=== PATIENT | male | born 1990 | race African-American/Black ===

== ENCOUNTER → 2020-10-21 09:45 | Outpatient (CLI) | payer OTHER, SELFPAY ==
[2020-10-21 11:34] LABS: COVID19 -Nasal RAPID Negative (Negative)
== END ==
PROVIDERS: Visit Provider Physician Assistant
DX: Z11.59 Encounter for screening for other viral diseases (principal)
CPT/HCPCS: 87635

== ENCOUNTER 2020-10-23 08:56 | Day surgery (SDC) | payer OTHER, SELFPAY ==
[2020-10-23] VITALS (12 sets, daily range): BP systolic 105–142; BP diastolic 47–96; PULSE 55–81; RESP 12–18; TEMP 36.2–37; O2SAT 95–99; BMI 26.7
[2020-10-23] MEDS: LACTATED RINGERS 1,000 ML 42 ML IV (09:23)
[2020-10-23] MEDS: ACETAMINOPHEN 325 MG TABLET 975 MG PO (09:38)
[2020-10-23] MEDS: SCOPOLAMINE 1 PATCH TOP (09:38)
--- NOTE | 2020-10-23 10:27 | SUR.OPER ---
Supine on padded OR bed, head on pillow, arms secured on padded arm boards at <90 degrees abduction, legs uncrossed, safety belt at thigh, tape over blanket over lower legs.
--- NOTE | 2020-10-23 10:33 | PM.PREOP ---
Pre-operative Note COVID-19 COVID-19 status: Negative Result date/Date tested (Pos, Neg/Pending): 10/21/20 Interval Note History & Physical reviewed/Exam performed by Physician: Yes Changes to H&P: No
--- NOTE | 2020-10-23 10:34 | PM.OP.1 ---
Operative Date/Time/Diagnoses Date of procedure: 10/23/20 Time of procedure: : Pre-op diagnosis: Recurring acute tonsillitis, tonsillar hypertrophy, upper airway obstruction, dysphagia Post-op diagnosis: same Procedure & Clinicians Procedure: Tonsillectomy Same procedure as scheduled: Yes Indications: 30-year-old male with the above diagnoses incompletely managed with medical therapy presents for the above procedure. Following discussion of the material risks benefits complications and alternatives, he elected to proceed. Surgeon: Yoel Capellan Click Yes if Unassisted: Yes Anesthesia Type: General and Local Operative Notes Findings: Intact palate, single uvula, 4+ tonsils, 3+ adenoids Closure Type: not applicable Specimen(s): none sent Estimated Blood Loss (mL): 20 Blood products transfused: none Procedure in detail: Following identification and confirmation of consent the patient was brought to the operating room suite and placed in the supine position. General endotracheal anesthesia was administered. A head wrap, shoulder roll, and mouth gag were placed and a red rubber catheter was inserted through the nostril and out the mouth to retract the soft palate. The adenoids were ablated with suction electrocautery on a setting of 40, without injury to the eustachian tube orifices or choanae. The left tonsil was retracted medially and suction electrocautery on a setting of 30 was used to dissect the tonsil in a subcapsular plane, followed by hemostasis with the same. This process was repeated on the right side with identical findings. The tonsillar fossae were superficially infiltrated bilaterally with a 1:1 mixture of 1% lidocaine 1 100,000 epinephrine and 0.25% Marcaine 1 to [id number] epinephrine. Mouth gag and rubber catheter were removed and the patient was extubated in the operating room and taken to the recovery room in stable condition without known complication. Complications: none Post-operative Condition: stable Disposition: same day surgery Plan for aftercare: [place] home
[2020-10-23] MEDS: LIDOCAINE 1% W/EPI 20 ML INJ (11:00)
[2020-10-23] MEDS: BUPIVACAINE 0.25% W/ EPI (PF) 10 ML VIAL 20 ML INJ (11:01)
[2020-10-23] MEDS: fentaNYL 100 MCG/2 ML INJ IV ×4 (12:10→12:25)
[2020-10-23] MEDS: OXYCODONE IR 5 MG TABLET PO (12:13)
== END 2020-10-23 13:08 | disposition home or self-care (01) ==
PROVIDERS: Referring Provider Otolaryngology; Visit Provider Otolaryngology
PROC: (CPT 42821; principal; 2020-10-23 10:15)
DX: J03.91 Acute recurrent tonsillitis, unspecified (principal); R13.10 Dysphagia, unspecified; J98.8 Other specified respiratory disorders
CPT/HCPCS: 42821; J0330; J1100; J2250; J2405; J2704; J3010